=== PATIENT | male | born 1955 | race Caucasian/White ===

== ENCOUNTER → 2018-03-22 08:02 | Outpatient (CLI) | payer BC | END | disposition home or self-care (01) | LOC: D.RAD 08:02 | DX: K21.9 Gastro-esophageal reflux disease without esophagitis (principal); R13.12 Dysphagia, oropharyngeal phase ==

== ENCOUNTER → 2018-03-29 12:39 | Outpatient (CLI) | payer BC | END | disposition home or self-care (01) | LOC: D.RAD 12:39 | DX: K21.9 Gastro-esophageal reflux disease without esophagitis (principal); R13.12 Dysphagia, oropharyngeal phase ==